=== PATIENT | female | born 1945 | race Caucasian/White ===

== ENCOUNTER 2017-04-02 10:41 | Emergency (ER) | payer OTHER, MEDICARE ==
--- NOTE | 2017-04-02 11:43 | CPEKG ---
Heart Rate: 60 RR Interval: 1000 P-R Interval: 156 QRSD Interval: 82 QT Interval: 420 QTC Interval: 420 P Shelby: 20 QRS Shelby: 7 T Wave Shelby: 74 EKG Severity - ABNORMAL ECG - EKG Impression: SINUS RHYTHM Electronically Signed By: Pritesh Cruz 02-Apr-2017 12:51:47
--- NOTE | 2017-04-02 11:53 | EDPHY ---
H & P Stated Complaint: vertigo and htn here visiting from [place] and [facility] was in [facility] yesterday Time Seen by Provider: 04/02/17 11:52 HPI/ROS: CHIEF COMPLAINT: Vertigo, transient blood pressure elevation HISTORY OF PRESENT ILLNESS: [place] She has been here for several days. Yesterday after visiting [place] she developed typical classic symptoms of peripheral vertigo. The patient slept through the night but continued to be symptomatic today. She has no symptoms when lying flat however does developed typical vertigo when upright and moving her head. The patient's blood pressure was elevated at home and reportedly in the 200/100 range. The patient does take medications for high blood pressure which she took today. Upon arrival to the emergency department the patient's blood pressure had normalized. The patient currently denies any complaints of an acute headache, neck pain, recent fall or trauma. She has no complaints of peripheral numbness or weakness. She complains only of mild nausea and positional vertigo. REVIEW OF SYSTEMS: A comprehensive 10 point review of systems is otherwise negative aside from elements mentioned in the history of present illness. Source: Patient - Personal History Current Tetanus/Diphtheria Vaccine: Yes - Medical/Surgical History Hx Asthma: No Hx Chronic Respiratory Disease: No Hx Diabetes: No Hx Cardiac Disease: No Hx Renal Disease: No Hx Cirrhosis: No Hx Alcoholism: No Hx HIV/AIDS: No Hx Splenectomy or Spleen Trauma: No Other PMH: HTN. KIDNEY STONES - Social History Smoking Status: Former smoker - Physical Exam Exam: General Appearance: Alert, no distress Eyes: Pupils equal and round no pallor or injection ENT, Mouth: Mucous membranes moist Respiratory: There are no retractions, lungs are clear to auscultation Cardiovascular: Regular rate and rhythm Gastrointestinal: Abdomen is soft and nontender, no masses, bowel sounds normal Neurological: 5/5 strength noted all 4 extremities, cranial nerves 2-12 intact , no pronator drift, normal cerebellar function, mild horizontal nystagmus noted with leftward gaze Skin: Warm and dry, no rashes Musculoskeletal: Neck is supple nontender Extremities: symmetrical, full range of motion Constitutional: Initial Vital Signs Temperature (C) 36.8 C 04/02/17 10:44 Heart Rate 60 04/02/17 10:44 Respiratory Rate 18 04/02/17 10:44 Blood Pressure 147/102 H 04/02/17 10:44 O2 Sat (%) 94 04/02/17 10:44 O2 Delivery Mode Room Air Allergies/Adverse Reactions: penicillin G Allergy (Verified 04/02/17 10:47) Home Medications: Medication Instructions Recorded Lisinopril 04/02/17 Toprol Xl 25 mg (*) 04/02/17 Medical Decision Making ED Course/Re-evaluation: The patient presents to the ED with symptoms consistent with peripheral vertigo. The patient reported hypertension at home which has resolved. The patient's exam is consistent with peripheral vertigo. She received meclizine and Zofran in the emergency department. The patient had serial examinations by myself over a 2 hour period. Her symptoms have completely resolved at this point time and she would like to be discharged home. The patient will be instructed to return to the ED for any recurrent neurologic symptoms, persistently elevated blood pressure, severe headache or other concerns. She should follow up with her primary care provider as scheduled for blood pressure check next week. She will be discharged home with a prescription for meclizine and Zofran. Differential Diagnosis: Differential diagnosis peripheral vertigo, central vertigo, labyrinthitis and felt to be unlikely based upon history and physical findings TIA, stroke - Data Points Medications Given: Discontinued Medications Meclizine HCl (Meclizine Hcl) 25 mg PO EDNOW ONE Stop: 04/02/17 12:11 Last Admin: 04/02/17 12:14 Dose: 25 mg Ondansetron HCl (Zofran Odt) 4 mg PO EDNOW ONE Stop: 04/02/17 12:11 Last Admin: 04/02/17 12:14 Dose: 4 mg Departure - Departure Disposition: Home, Routine, Self-Care Clinical Impression: Peripheral vertigo Condition: Good Instructions: Benign Paroxysmal Positional Vertigo (ED) Additional Instructions: 1. Please keep a close eye on your blood pressure and return to the emergency department for any blood pressures persistently greater than 180/110. 2. Return to the ED for severe headache, numbness, weakness or any acute neurologic symptoms. 3. Zofran as needed for nausea. Meclizine as needed for any recurrent vertigo. 4. Please follow-up with your primary care provider as scheduled for blood pressure check next week.
[2017-04-02] MEDS ORDERED: ONDANSETRON DISINTEGRATING 4 MG TAB PO ONE (12:10)
[2017-04-02] MEDS ORDERED: MECLIZINE HCL 25 MG TAB PO ONE (12:10)
[2017-04-02 13:01] VITALS: BP 130/75; PULSE 71; RESP 18; TEMP 98.4; O2SAT 92
== END 2017-04-02 13:01 | disposition home or self-care (01) ==
DX: H81.399 Other peripheral vertigo, unspecified ear (principal); I10 Essential (primary) hypertension; Z87.891 Personal history of nicotine dependence